=== PATIENT | male | born 1950 | race Caucasian/White ===

== ENCOUNTER 2018-09-10 11:17 | Emergency (ER) | payer MEDICARE ==
--- NOTE | 2018-09-10 12:15 | CT ---
EXAM: Brain CT scan Without contrast: HISTORY: Injury following a fall COMPARISON: None FINDINGS: Focal right posterior scalp injury. Partial opacification right mastoid. Atrophy and chronic white matter ischemic change. No focal mass or midline shift. No intra or extra-axial hemorrhage. The visualized sinuses and mastoids are clear of acute process. IMPRESSION: No mass or bleed or other significant acute intracranial process.
--- NOTE | 2018-09-10 12:22 | CT ---
EXAM: CT scan cervical spineWithout contrast: HISTORY: Injury from a fall COMPARISON: None FINDINGS: No evidence for acute fracture or facet dislocation. No significant malalignment. No prevertebral soft tissue swelling. Multilevel disc osteophytosis with variable severity multilevel canal, lateral recess, and foraminal stenosis. Minimal partial opacification of the inferior right mastoid. IMPRESSION: No evidence for acute fracture or facet dislocation or other significant acute process.
[2018-09-10 12:29] LABS: Hemoglobin 12.1 g/dL (14.0-18.0); Mean Corpuscular HGB CONC 34.2 g/dL (32.0-36.0); Mean Corpuscular Hemoglobin 36.1 pg (27.0-31.0); Mean Platelet Volume 8.2 fL (7.4-10.4); Platelet Count 160 thou/uL (130-400); Red Blood Cell (RBC) Count 3.37 mill/uL (4.70-6.10); White Blood Cell (WBC) Count 13.9 thou/uL (4.8-10.8)
[2018-09-10 12:30] LABS: Prothrombin Time 12.8 SEC (12.0-14.7)
[2018-09-10 12:46] LABS: ALT (SGPT) 14 U/L (8-55); AST (SGOT) 35 U/L (5-34); Albumin 4.1 g/dL (3.4-4.8); Alkaline Phosphatase 77 U/L (40-150); Anion Gap 21 mmol/L (10-20); BUN (Urea Nitrogen) 10 mg/dL (8.4-25.7); Bilirubin, Total 0.5 mg/dL (0.2-1.2); Calc. Creatinine Clearance 0 mL/min (70-130); Carbon Dioxide 22 mmol/L (23-31); Chloride 98 mmol/L (98-107); Estimated GFR-MDRD 44; Globulin 3.1 g/dL (2.4-3.5); Glucose 125 mg/dL (80-115); Potassium 3.6 mmol/L (3.5-5.1); Protein, Total 7.2 g/dL (5.8-8.1); Sodium 137 mmol/L (136-145)
[2018-09-10 12:47] LABS: PTT 20.2 SEC (22.9-36.1)
[2018-09-10 13:00] LABS: #Lymphocytes 1.2 thou/uL (1.20-3.40); #Monocytes 0.7 thou/uL (0.11-0.59); #Neutrophils 11.9 thou/uL (1.40-6.50); %Basophils 0.2 % (0.0-1.0); %Eosinophils 0.2 % (0.0-10.0); %Lymphocytes 8.7 % (21.0-51.0); Anisocytosis SLIGHT = 6-15 cells (100X) (0-5/hpf); MDiff Complete? YES; Macrocytosis SLIGHT = 6-15 cells (100X) (0-5/hpf); Platelet Morphology Comment Appears Adequate
[2018-09-10] MEDS ORDERED: Lidocaine 1% w/Epinephrine 1:100K 20 ML VIAL ONE (13:17)
[2018-09-10] MEDS ORDERED: Bacitracin Zinc 1 Packet ONE (13:44)
[2018-09-10] MEDS ORDERED: Adacel (T-DAP) 0.5 ML SYRINGE ONE (13:44)
== END 2018-09-10 13:48 | disposition home or self-care (01) ==
LOC: ERS 11:17
DX: S01.01XA Laceration without foreign body of scalp, initial encounter (principal); F10.10 Alcohol abuse, uncomplicated; F17.210 Nicotine dependence, cigarettes, uncomplicated; Z23 Encounter for immunization; W22.8XXA Striking against or struck by other objects, initial encounter
CPT/HCPCS: 12002; 36415; 70450; 72125; 80053; 85025; 85610; 85730; 90471; 90715; J2001

== ENCOUNTER 2018-09-28 12:20 | Emergency (ER) | payer MEDICARE | END 2018-09-28 12:49 | disposition home or self-care (01) | LOC: ERS 12:20 | DX: S01.01XD Laceration without foreign body of scalp, subsequent encounter (principal) ==

== ENCOUNTER 2018-10-26 14:34 | Emergency (ER) | payer MEDICARE | END 2018-10-26 15:23 | disposition home or self-care (01) | LOC: ERS 14:34 | DX: S01.01XD Laceration without foreign body of scalp, subsequent encounter (principal); F17.210 Nicotine dependence, cigarettes, uncomplicated; X58.XXXD Exposure to other specified factors, subsequent encounter ==

== ENCOUNTER 2018-11-14 11:38 | Inpatient (IN) | payer MEDICARE ==
[2018-11-14] MEDS ORDERED: ISOVUE-370 76%-LOCM 1 ML ONE (11:54)
--- NOTE | 2018-11-14 11:56 | CT ---
CT Brain WO Con: 11/14/2018 11:43 AM CLINICAL HISTORY: Level 2 stroke alert with right lower extremity weakness, last seen normal at 2100 hours last evening. IMAGING TECHNIQUE: Multiple CT images were obtained of the brain without IV contrast. COMPARISON: September 10, 2018 FINDINGS: Infarct: No acute infarct evident. There is moderate chronic small vessel white matter ischemic mace ge. Hemorrhage: None.. Hydrocephalus: None.. Basal cisterns: Normal.. Cerebral parenchyma: There is diffuse cerebral atrophy. Midline shift: None.. Cerebellum: There is diffuse cerebellar atrophy Brainstem: Normal. OTHER: Calvarium: Intact.. Visualized Paranasal sinuses: Clear.. Extracranial soft tissues:Normal. IMPRESSION: 1. No acute intracranial abnormality. 2. Findings called to Dr. Hernandez at 11:50 AM on November 14, 2018.
[2018-11-14 12:01] LABS: #Lymphocytes 0.9 thou/uL (1.20-3.40); #Monocytes 0.4 thou/uL (0.11-0.59); #Neutrophils 6.3 thou/uL (1.40-6.50); %Basophils 0.3 % (0.0-1.0); %Eosinophils 0.4 % (0.0-10.0); %Lymphocytes 11.4 % (21.0-51.0); %Monocytes 5.8 % (0.0-10.0); %Neutrophils 82.1 % (42.0-75.0); Hemoglobin 13.7 g/dL (14.0-18.0); Mean Corpuscular Hemoglobin 33.6 pg (27.0-31.0); Mean Corpuscular Volume 98.8 fL (78.0-98.0); Mean Platelet Volume 8.4 fL (7.4-10.4); Platelet Count 177 thou/uL (130-400); RBC Distribution Width 12.6 % (11.5-14.5); Red Blood Cell (RBC) Count 4.08 mill/uL (4.70-6.10); White Blood Cell (WBC) Count 7.6 thou/uL (4.8-10.8)
[2018-11-14 12:02] LABS: PTT 22.8 SEC (22.9-36.1)
--- NOTE | 2018-11-14 12:13 | CT ---
CTA of the head with and without IV contrast and 3-D reformatted imaging. CTA of the neck with IV contrast and 3-D reformatted imaging. INDICATION: Level 2 stroke workup with right lower extremity weakness COMPARISON: CT of the brain dated 11/14/2018 FINDINGS: CTA OF THE HEAD WITH CONTRAST: CTA OF THE BRAIN: Right ICA: Patent. Right MCA: Patent. Right DMITRY: Patent. ACOM: Patent. Left ICA: Patent. Left MCA: Patent. Left DMITRY: Patent. PCOMs: Patent. Vertebral arteries: There is mild atherosclerotic narrowing involving the mid left intracranial vert ebral artery. The right intracranial vertebral artery appears patent. Basilar Artery: Patent. agricultural scientist: Patent. Incidentals: No abnormal enhancement is demonstrated. CTA OF THE NECK WITH CONTRAST: Right CCA: Patent. Right ICA: Patent. Right Subclavian: Patent. Right Vertebral Artery: There is [id number] narrowing involving the origin of the right verteb ral artery due to partially calcified atherosclerotic plaque Left CCA: Patent. Left ICA: There is mild narrowing involving the proximal left internal carotid artery due to partial ly calcified atherosclerotic plaque Left Subclavian: Patent. Left Vertebral Artery: There is moderate narrowing involving the origin of the right vertebral arter y due to partially calcified atherosclerotic plaque Aerodigestive tract: Clear. Parotids/Submandibular/Thyroid glands: Normal. Lymph nodes: No pathologically enlarged lymph nodes. Lung Apices: Clear. Bones: There is scattered degenerative and osteoarthritic change present. Incidentals: None. IMPRESSION: 1. No large arterial vessel thrombus demonstrated. 2. Moderate narrowing involving the origins of the right and left vertebral arteries. Mild narrowing involving the mid left intracranial vertebral artery. 3. Mild proximal left ICA narrowing due to partially calcified atherosclerotic plaque. 4. Findings were called to Dr. Hernandez At 12:05 PM on November 14, 2018.
[2018-11-14 12:18] LABS: ALT (SGPT) 10 U/L (8-55); AST (SGOT) 21 U/L (5-34); Alkaline Phosphatase 87 U/L (40-150); Anion Gap 14 mmol/L (10-20); BUN (Urea Nitrogen) 9 mg/dL (8.4-25.7); Bilirubin, Total 1.1 mg/dL (0.2-1.2); Calc. Creatinine Clearance 0 mL/min (70-130); Calcium 9.4 mg/dL (7.8-10.44); Carbon Dioxide 28 mmol/L (23-31); Chloride 100 mmol/L (98-107); Estimated GFR-MDRD Greater than 90; Globulin 2.9 g/dL (2.4-3.5); Glucose 105 mg/dL (80-115); Potassium 3.8 mmol/L (3.5-5.1); Protein, Total 6.9 g/dL (5.8-8.1); Sodium 138 mmol/L (136-145)
--- NOTE | 2018-11-14 12:35 | RAD ---
PORTABLE CHEST 1 VIEW: Date: 11/14/18 Time: 1203 hours HISTORY: Dysphagia, expressive aphasia, right-sided weakness. FINDINGS/IMPRESSION: The heart size is enlarged. The aorta is tortuous. The lungs are expanded without lobar consolidation , pneumothoraces, aldo pulmonary edema, or pleural effusions. POS: ONURH
[2018-11-14] MEDS ORDERED: Aspirin 300 MG Suppository ONE (13:09)
[2018-11-14] MEDS ORDERED: Ondansetron PF 4 MG/2 ML Vial ONE (13:09)
[2018-11-14] MEDS ORDERED: Multivitamins, Adult 10 ML, Thiamine HCl 100 MG, Folic Acid 1 MG in Dextrose 5 %-0.45 %... IV SCH (14:30)
[2018-11-14] MEDS ORDERED: Labetalol HCl 100 MG/20 ML VIAL SLOW IVP PRN (16:18)
[2018-11-14] MEDS ORDERED: Bisacodyl 5 MG TAB PO PRN (16:18)
[2018-11-14] MEDS ORDERED: hydrALAZINE 20 MG/ML VIAL SLOW IVP PRN (16:18)
[2018-11-14] MEDS ORDERED: Ondansetron PF 4 MG/2 ML Vial IVP PRN (16:18)
[2018-11-14] MEDS ORDERED: Acetaminophen 325 MG TAB PO PRN (16:18)
[2018-11-14] MEDS ORDERED: Acetaminophen 650 MG Suppository PR PRN (16:18)
--- NOTE | 2018-11-14 17:16 | HP ---
PRIMARY CARE PROVIDER: None. CHIEF COMPLAINT: Weakness. HISTORY OF PRESENT ILLNESS: Mr. Mchugh is a pleasant 68-year-old gentleman, who was seen at [facility] on November 14, 2018. Mr. Mchugh is currently unable to provide any significant history secondary to aphasia. Collateral history was obtained from review of medical records and discussion with emergency room physician. I tried to call Mr. Mchugh's sister, but the phone line was not working. Mr. Mchugh has not seen a physician in several years. He was last seen to be at baseline last night. He does have a history of alcohol abuse. He lives in assisted living. Today morning, his neighbor heard him screaming. 911 was called. The patient was found to have aphasia and altered mental status. He was unable to follow commands. He also reportedly had right-sided paralysis, although at the time of my examination, he was able to move both right extremities. REVIEW OF SYSTEMS: Could not be completed secondary to the patient's aphasia. PAST MEDICAL HISTORY: None. PAST SURGICAL HISTORY: None. SOCIAL HISTORY: The patient smokes 3 to 4 cigarettes a day and drinks alcohol every day. FAMILY HISTORY: Could not be obtained. CODE STATUS: Could not be discussed because of the patient's aphasia and altered mental status. ALLERGIES: NO KNOWN DRUG ALLERGIES. CURRENT MEDICATIONS: None. PHYSICAL EXAMINATION: GENERAL: On examination, Mr. Mchugh is awake and alert, not in acute distress. VITAL SIGNS: Blood pressure is 153/103, pulse 79, respiratory rate 24, and oxygen saturation 98% on room air. He is afebrile. EYES: No scleral icterus. No conjunctival pallor. ENT: Moist mucosal membranes. No oropharyngeal erythema or exudates. NECK: Supple and nontender. Trachea is midline. RESPIRATORY: Accessory muscles of breathing are not active. Chest wall movements are symmetric bilaterally. LUNGS: Clear to auscultation without wheeze, rhonchi, or crepitations. CARDIOVASCULAR: S1 and S2 are heard, regular. Peripheral pulses palpable. No carotid bruit. No pericardial rub. ABDOMEN: Soft and nontender. Bowel sounds heard. NEUROLOGIC: Full neurologic examination was not possible secondary to the patient's noncooperation. There is no facial droop. He is moving his left extremities more than he is moving the right. He is able to rug cleaner hand my finger with his left hand, but is unable to do so with his right hand. Pupils are equal and reactive to light. Deep tendon reflexes are 2+, plantars downgoing bilaterally. The patient has receptive and expressive aphasia. MUSCULOSKELETAL: Four extremities as described above. SKIN: Multiple abrasions. LYMPHATIC: No cervical lymphadenopathy. PSYCHIATRIC: Normal mood, normal affect, unable to assess the patient's orientation to person, place, or time. LABORATORY DATA: Mr. Mchugh's labs and investigations were reviewed. I reviewed his electrocardiogram, which shows normal sinus rhythm, no ST changes to suggest an acute coronary syndrome. I reviewed his chest x-ray, which does not show any pulmonary infiltrates. Noncontrast CT scan of the brain did not show any acute intracranial abnormality. CT scan of [place] with contrast did not show any large arterial vessel thrombus. There was mild proximal left ICA narrowing due to partially calcified atherosclerotic block on CT angiogram of the neck with contrast. He had moderate narrowing involving the origins of the right and left vertebral arteries and mild narrowing involving the mid left intracranial vertebral artery. He has macrocytic anemia with hemoglobin 13.7, normal white count, normal platelet count, INR 1.0, normal comprehensive metabolic profile, normal troponin-I and plasma alcohol level less than 10. ASSESSMENT AND PLAN: Mr. Mchugh is a pleasant 68-year-old gentleman, who was seen at [facility] on November 14, 2018. His problem list includes: 1. Aphasia: Mr. Mchugh is presenting with aphasia, most likely secondary to ischemic cerebrovascular accident. He will be admitted to the hospital for further management. Neurology Service will be consulted. He will be started on aspirin. We will check MRI of brain and 2D echocardiogram. Rehab services will be consulted. 2. Alcohol abuse: We will start the patient on ASE protocol. 3. Tobacco abuse: We will consult the patient when he is doing better. We will start nicotine replacement therapy for now. 4. Altered mental status: Could be secondary to stroke. We will also check urine studies to rule out any urinary tract infection. 5. We will also start the patient on banana bag. LEVEL OF COMPLEXITY: High. LEVEL OF COMPLEXITY: High. Job ID: [id number]
[2018-11-14 17:39] VITALS: BMI 19.0
[2018-11-14] MEDS ORDERED: Diazepam 5 MG TAB PO PRN (21:17)
[2018-11-14] MEDS ORDERED: Diazepam 5 MG TAB PO SCH (21:30)
[2018-11-15] MEDS ORDERED: Diazepam 5 MG TAB PO PRN (04:00)
[2018-11-15 04:22] LABS: #Basophils 0.1 thou/uL (0.0-0.2); #Eosinphils 0.1 thou/uL (0.0-0.7); #Lymphocytes 1.3 thou/uL (1.20-3.40); #Monocytes 1.1 thou/uL (0.11-0.59); #Neutrophils 6.1 thou/uL (1.40-6.50); %Basophils 1.1 % (0.0-1.0); %Eosinophils 1.6 % (0.0-10.0); %Lymphocytes 14.8 % (21.0-51.0); %Monocytes 12.3 % (0.0-10.0); %Neutrophils 70.2 % (42.0-75.0); Hemoglobin 14.2 g/dL (14.0-18.0); Mean Corpuscular Hemoglobin 33.6 pg (27.0-31.0); Mean Platelet Volume 8.5 fL (7.4-10.4); Platelet Count 168 thou/uL (130-400); RBC Distribution Width 12.6 % (11.5-14.5); Red Blood Cell (RBC) Count 4.22 mill/uL (4.70-6.10); White Blood Cell (WBC) Count 8.7 thou/uL (4.8-10.8)
[2018-11-15 04:54] LABS: Anion Gap 16 mmol/L (10-20); BUN (Urea Nitrogen) 5 mg/dL (8.4-25.7); Calc. Creatinine Clearance 84 mL/min (70-130); Calcium 9.6 mg/dL (7.8-10.44); Carbon Dioxide 25 mmol/L (23-31); Cardiac Risk 2.4 (Less than 4.5); Chloride 102 mmol/L (98-107); Cholesterol 158 mg/dl (< 200 Desired); Estimated GFR-MDRD Greater than 90; Glucose 99 mg/dL (80-115); HDL Cholesterol 65 mg/dL (>60 Neg Risk); LDL Cholesterol, Calculated 76 mg/dL; Potassium 3.8 mmol/L (3.5-5.1); Sodium 139 mmol/L (136-145); Triglycerides 83 mg/dL (Less than 150)
[2018-11-15 06:20] LABS: Bacteria/HPF None Seen HPF (None Seen); Bilirubin Negative (Negative); Blood, Urine Negative (Negative); Clarity Clear (Clear); Glucose, Urine (Dipstick) Normal (Negative); Leukocyte Negative Leu/uL (Negative); Nitrite Negative (Negative); Protein, Urine (Dipstick) 20 mg/dL (Neg-Trace); Squamous Epithelial 0-3 HPF (0-3); Urobilinogen 6 mg/dL (Less than 2); WBC/HPF 0-3 HPF (0-3)
[2018-11-15 06:25] LABS: Urine Culture Reflex No No
[2018-11-15] MEDS ORDERED: Lorazepam 2 MG/ML VIAL SLOW IVP SCH (08:45)
[2018-11-15] MEDS ORDERED: Prevnar 13-Val Conj/PF 0.5 ML SYRINGE IM ONE (09:00)
[2018-11-15] MEDS: Enoxaparin Sodium 40 MG/0.4 ML SYRINGE SC SCH (10:31)
--- NOTE | 2018-11-15 11:37 | PDOC.HOSPP ---
- Subjective Subjective: Ms. Mchugh was seen today in follow-up of aphasia. He is still aphasic, and his words are clear, but he does not answer questions appropriately. - Objective Vital Signs & Weight: Vital Signs (12 hours) Temp Pulse Pulse Pulse Resp BP BP 11/15/18 08:48 65 64 132/68 137/67 11/15/18 08:00 97.6 F 68 20 11/15/18 03:18 98.3 F 71 20 BP Pulse Ox 11/15/18 08:48 11/15/18 08:00 136/67 94 L 11/15/18 03:18 115/57 L 92 L Weight Weight 144 lb 6 oz I&O: 11/14/18 11/15/18 11/16/18 06:59 06:59 06:59 Intake Total 497 Output Total 200 200 Balance 297 -200 Result Diagrams: 11/15/18 04:14 11/15/18 04:14 Additional Labs: Accuchecks 11/14/18 11:44 POC Glucose 98 ROS - Review of Systems All systems: All other ROS were reviewed and found negative. - Medication Medications: Active Medications Generic Name Dose Route Start Last Admin Trade Name Freq PRN Reason Stop Dose Admin Enoxaparin Sodium 40 mg 11/15/18 09:00 11/15/18 10:31 Lovenox SC 40 mg 0900 MIKAYLA Administration - Exam Eye: PERRL, anicteric sclera ENT: normocephalic atraumatic, no oropharyngeal lesions, moist mucosa Heart: RRR, no murmur, no gallops, no rubs, normal peripheral pulses Respiratory: CTAB, no wheezes, no rales, no ronchi, normal chest expansion Gastrointestinal: soft, non-tender, non-distended, normal bowel sounds, no palpable masses, no hepatomegaly Extremities: no cyanosis, no clubbing, no edema Neurological: speech deficit (Aphasic- expressive) Hosp A/P (1) Expressive aphasia Code(s): R47.01 - APHASIA Status: Acute (2) Dysphagia Code(s): R13.10 - DYSPHAGIA, UNSPECIFIED Status: Acute - Plan * Expressive Aphasia- likely due to an acute CVA- Speech therapy to evaluate * MRI and Echo are pending * Dysphagia- will remain NPO, and continue to assess. Will also need to locate family
[2018-11-15] MEDS: Multivitamin W/ Minerals 1 TAB PO SCH (11:52)
[2018-11-15] MEDS: Magnesium Oxide 400 MG TAB PO SCH (11:52)
[2018-11-15] MEDS: Folic Acid 1 MG TAB PO SCH (11:52)
[2018-11-15] MEDS: Thiamine 100 MG TAB PO SCH (11:53)
--- NOTE | 2018-11-15 16:12 | CON ---
DATE OF CONSULTATION: 11/15/2018 CONSULTING PHYSICIAN: Hospitalist Service. IMPRESSION: Questionable stroke versus dementia. PLAN: MRI of the brain. HISTORY OF PRESENT ILLNESS: Mr. Mchugh is a 68-year-old man, who came in from [facility] reportedly. There was some change in mental status. On review of the ER record, there is very little information. He had CT and CT angiogram done in the emergency room, which were both negative. He has been admitted to the floor. He is unable to give any type of history. PAST MEDICAL HISTORY: Unknown. ALLERGIES: NONE REPORTED. SOCIAL HISTORY: halfway resident. FAMILY HISTORY: Not obtainable. REVIEW OF SYSTEMS: Not obtainable. PHYSICAL EXAMINATION: GENERAL: He is a thin elderly man, lying in bed in a diaper. VITAL SIGNS: Blood pressure 136/67, pulse 68, respirations 20, and temperature 97.6. HEENT: Pupils equal. Conjunctivae clear. Oropharynx, poor dentition. NECK: Supple. No lymphadenopathy. EXTREMITIES: No cyanosis, clubbing, or edema. NEUROLOGIC: He was awake, but he had very poor verbal output. He would follow some simple commands. There was no facial asymmetry. He had good antigravity strength in both upper extremities, but I could not get him to do a hand healthcare interpreter on the right as compared to the left. Plantar responses were downgoing bilaterally. Gait was not testable. No abnormal movements were seen. DIAGNOSTIC STUDIES: EKG shows sinus rhythm. LABORATORY STUDIES: Unremarkable. CBC, coags, and chemistry panel with a risk ratio of 2.4. His toxicology screen was negative for alcohol. His urine was clear. SUMMARY: Elderly gentleman, who is unable to give a history. It is difficult to say whether it might be a component of expressive aphasia versus purely dementia. MRI should sort this out. Job ID: [id number]
--- NOTE | 2018-11-15 16:26 | MRI ---
MRI brain noncontrast HISTORY: Altered mental status. Right leg weakness. FINDINGS: There is no evidence of acute intracranial hemorrhage or infarct. Diffuse cortical atrophy. Chronic ischemic small vessel disease within the periventricular white matter of each cerebral hemisphere. There is no mass effect or shift of midline structures. Motion artifact obscures detail. IMPRESSION: No acute intracranial abnormalities are demonstrated. Prominent cortical atrophy.
[2018-11-15] MEDS: Multivitamins, Adult 10 ML, Folic Acid 1 MG, Thiamine HCl 100 MG in Dextrose 5 %-0.45 %... IV SCH (16:34)
[2018-11-16] MEDS ORDERED: Thiamine HCl 200 MG/2 ML VIAL SLOW IVP SCH (07:15)
[2018-11-16] MEDS: Magnesium Oxide 400 MG TAB PO SCH (08:58)
[2018-11-16] MEDS: Folic Acid 1 MG TAB PO SCH (08:58)
[2018-11-16] MEDS: Multivitamin W/ Minerals 1 TAB PO SCH (08:58)
[2018-11-16] MEDS: Thiamine 100 MG TAB PO SCH (08:58)
[2018-11-16] MEDS: Enoxaparin Sodium 40 MG/0.4 ML SYRINGE SC SCH (08:58)
[2018-11-16] MEDS: Multivitamins, Adult 10 ML, Folic Acid 1 MG, Thiamine HCl 100 MG in Dextrose 5 %-0.45 %... IV SCH (15:47)
--- NOTE | 2018-11-16 15:58 | PDOC.HOSPP ---
- Subjective Subjective: Mr. Mchugh was seen today in follow-up of altered mental status at approximately 13:15. His sister is at the bedside. He is able to form more complete sentences, but he is still confused. His sister confirms he has not sought medical care in a long time, probably years. She also says that he drinks excessively daily. - Objective Vital Signs & Weight: Vital Signs (12 hours) Temp Pulse Pulse Pulse Resp BP BP 11/16/18 12:15 149/74 H 11/16/18 11:39 97.6 F 63 17 11/16/18 10:22 68 65 136/73 11/16/18 09:17 84 69 134/60 11/16/18 08:40 11/16/18 08:20 131/78 11/16/18 07:54 98.4 F 76 18 11/16/18 04:00 99.6 F 70 16 BP BP Pulse Ox 11/16/18 12:15 11/16/18 11:39 149/74 H 100 11/16/18 10:22 134/72 11/16/18 09:17 141/74 H 11/16/18 08:40 96 11/16/18 08:20 11/16/18 07:54 131/78 96 11/16/18 04:00 136/71 96 Weight Admit Weight 144 lb 6 oz Weight 144 lb 6 oz I&O: 11/15/18 11/16/18 11/17/18 06:59 06:59 06:59 Intake Total 497 200 300 Output Total 200 200 Balance 297 0 300 Result Diagrams: 11/15/18 04:14 11/15/18 04:14 ROS - Review of Systems All systems: All other ROS were reviewed and found negative. - Medication Medications: Active Medications Generic Name Dose Route Start Last Admin Trade Name Freq PRN Reason Stop Dose Admin Enoxaparin Sodium 40 mg 11/15/18 09:00 11/16/18 08:58 Lovenox SC 40 mg 0900 MIKAYLA Administration Folic Acid 1 mg 11/15/18 09:00 11/16/18 08:58 Folvite PO 1 mg DAILY MIKAYLA Administration Multivitamins 10 ml/ Folic 1,011.2 mls @ 100 mls/hr 11/15/18 14:00 11/16/18 15:47 Acid 1 mg/ Thiamine HCl 100 mg IV 1,011.2 mls / Dextrose/Sodium Chloride Q24HR MIKAYLA Administration Iron/Minerals/Multivitamins 1 tab 11/15/18 09:00 11/16/18 08:58 Theragran M PO 1 tab DAILY MIKAYLA Administration Magnesium Oxide 400 mg 11/15/18 09:00 11/16/18 08:58 Magnesium Oxide PO 400 mg DAILY MIKAYLA Administration Thiamine HCl 100 mg 11/15/18 09:00 11/16/18 08:58 Thiamine PO 100 mg DAILY MIKAYLA Administration - Exam Eye: PERRL Heart: RRR, no murmur, no gallops, no rubs, normal peripheral pulses Respiratory: CTAB, no wheezes, no rales, no ronchi Gastrointestinal: soft, non-tender, non-distended, normal bowel sounds, no palpable masses, no hepatomegaly, no splenomegaly Extremities: no cyanosis Skin: normal turgor, no lesions Neurological: CN's grossly intact, no weakness Hosp A/P (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
[2018-11-16] MEDS ORDERED: Lorazepam 2 MG/ML VIAL SLOW IVP PRN (16:03)
[2018-11-17] MEDS: Lorazepam 1 MG TAB PO PRN ×2 (01:57→22:59)
[2018-11-17] MEDS: Multivitamin W/ Minerals 1 TAB PO SCH (09:12)
[2018-11-17] MEDS: Enoxaparin Sodium 40 MG/0.4 ML SYRINGE SC SCH (09:12)
[2018-11-17] MEDS: Folic Acid 1 MG TAB PO SCH (09:12)
[2018-11-17] MEDS: Thiamine 100 MG TAB PO SCH (09:12)
[2018-11-17] MEDS: Magnesium Oxide 400 MG TAB PO SCH (09:12)
[2018-11-17] MEDS: Multivitamins, Adult 10 ML, Folic Acid 1 MG, Thiamine HCl 100 MG in Dextrose 5 %-0.45 %... IV SCH (15:01)
--- NOTE | 2018-11-17 15:17 | PDOC.HOSPP ---
- Subjective Subjective: Mr. Mchugh was seen today at approximately 11:00AM. He has not changed much overnight. He is confused and his continues with difficulty answering questions appropriately. - Objective Vital Signs & Weight: Vital Signs (12 hours) Temp Pulse Pulse Pulse Resp BP BP 11/17/18 12:10 145/70 H 11/17/18 12:00 97.9 F 81 20 11/17/18 09:54 104 H 89 133/72 11/17/18 08:15 140/78 11/17/18 07:25 98.1 F 70 16 11/17/18 04:00 98.1 F 64 16 BP BP Pulse Ox 11/17/18 12:10 11/17/18 12:00 145/70 H 96 11/17/18 09:54 115/66 11/17/18 08:15 11/17/18 07:25 140/78 95 11/17/18 04:00 145/68 H 97 Weight Admit Weight 144 lb 6 oz Weight 144 lb 6 oz I&O: 11/16/18 11/17/18 11/18/18 06:59 06:59 06:59 Intake Total 200 300 600 Output Total 200 200 Balance 0 100 600 Result Diagrams: 11/15/18 04:14 11/15/18 04:14 ROS - Review of Systems All systems: All other ROS were reviewed and found negative. - Medication Medications: Active Medications Generic Name Dose Route Start Last Admin Trade Name Freq PRN Reason Stop Dose Admin Diazepam 5 mg 11/15/18 04:00 11/17/18 09:12 Valium PO 5 mg Q4H PRN Administration FOR ASE 10 OR GREATER Enoxaparin Sodium 40 mg 11/15/18 09:00 11/17/18 09:12 Lovenox SC 40 mg 0900 MIKAYLA Administration Folic Acid 1 mg 11/15/18 09:00 11/17/18 09:12 Folvite PO 1 mg DAILY MIKAYLA Administration Multivitamins 10 ml/ Folic 1,011.2 mls @ 100 mls/hr 11/15/18 14:00 11/17/18 15:01 Acid 1 mg/ Thiamine HCl 100 mg IV Not Given / Dextrose/Sodium Chloride Q24HR [facility] Iron/Minerals/Multivitamins 1 tab 11/15/18 09:00 11/17/18 09:12 Theragran M PO 1 tab DAILY MIKAYLA Administration Lorazepam 1 mg 11/16/18 16:03 11/17/18 01:57 Ativan PO 1 mg Q4H PRN Administration Anxiety/Agitation Magnesium Oxide 400 mg 11/15/18 09:00 11/17/18 09:12 Magnesium Oxide PO 400 mg DAILY MIKAYLA Administration Thiamine HCl 100 mg 11/15/18 09:00 11/17/18 09:12 Thiamine PO 100 mg DAILY MIKAYLA Administration - Exam Eye: PERRL, anicteric sclera Heart: RRR, no murmur, no gallops, no rubs, normal peripheral pulses Respiratory: CTAB, no wheezes, no rales, no ronchi, normal chest expansion Gastrointestinal: soft, non-tender, non-distended, normal bowel sounds, no palpable masses, no splenomegaly Extremities: 1+ LE edema Hosp A/P (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
[2018-11-18 08:02] VITALS: BP 165/87; TEMP 98.2
--- NOTE | 2018-11-18 08:45 | PDOC.HOSPP ---
- Subjective Subjective: Mr. Mchugh was seen today in follow-up of altered mental status. He is sitting up in bed eating. He does not appear to be in any distress. - Objective Vital Signs & Weight: Vital Signs (12 hours) Temp Pulse Resp BP Pulse Ox 11/18/18 07:35 98.2 F 73 20 165/87 H 99 11/18/18 05:32 99 11/18/18 04:00 97.7 F 66 16 138/67 99 11/18/18 00:00 97.4 F L 74 16 125/69 100 Weight Admit Weight 144 lb 6 oz Weight 144 lb 6 oz I&O: 11/17/18 11/18/18 11/19/18 06:59 06:59 06:59 Intake Total 300 900 Output Total 200 Balance 100 900 Result Diagrams: 11/15/18 04:14 11/15/18 04:14 ROS - Review of Systems All systems: All other ROS were reviewed and found negative. - Medication Medications: Active Medications Generic Name Dose Route Start Last Admin Trade Name Freq PRN Reason Stop Dose Admin Diazepam 5 mg 11/15/18 04:00 11/17/18 09:12 Valium PO 5 mg Q4H PRN Administration FOR ASE 10 OR GREATER Enoxaparin Sodium 40 mg 11/15/18 09:00 11/17/18 09:12 Lovenox SC 40 mg 0900 MIKAYLA Administration Folic Acid 1 mg 11/15/18 09:00 11/17/18 09:12 Folvite PO 1 mg DAILY MIKAYLA Administration Iron/Minerals/Multivitamins 1 tab 11/15/18 09:00 11/17/18 09:12 Theragran M PO 1 tab DAILY MIKAYLA Administration Lorazepam 1 mg 11/16/18 16:03 11/17/18 22:59 Ativan PO 1 mg Q4H PRN Administration Anxiety/Agitation Magnesium Oxide 400 mg 11/15/18 09:00 11/17/18 09:12 Magnesium Oxide PO 400 mg DAILY MIKAYLA Administration Thiamine HCl 100 mg 11/15/18 09:00 11/17/18 09:12 Thiamine PO 100 mg DAILY MIKAYLA Administration - Exam Eye: PERRL, anicteric sclera Heart: RRR, no murmur, no gallops, no rubs, normal peripheral pulses Respiratory: CTAB, no wheezes, no rales, no ronchi, normal chest expansion, no tachypnea Gastrointestinal: soft, non-tender, non-distended, normal bowel sounds, no palpable masses Extremities: no edema Hosp A/P (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
[2018-11-18] MEDS: Multivitamin W/ Minerals 1 TAB PO SCH (10:44)
[2018-11-18] MEDS: Thiamine 100 MG TAB PO SCH (10:45)
[2018-11-18] MEDS: Magnesium Oxide 400 MG TAB PO SCH (10:45)
[2018-11-18] MEDS: Folic Acid 1 MG TAB PO SCH (10:45)
[2018-11-18] MEDS: Enoxaparin Sodium 40 MG/0.4 ML SYRINGE SC SCH (10:45)
--- NOTE | 2018-11-19 14:34 | DIS ---
DATE OF ADMISSION: 11/14/2018 DATE OF DISCHARGE: 11/18/2018 PRIMARY CARE PHYSICIAN: The patient does not have a primary care physician. DISCHARGE DISPOSITION: [facility]. DISCHARGE DIAGNOSES: 1. Alcoholic encephalopathy. 2. Alcoholism. 3. Aphasia. DISCHARGE MEDICATIONS: Include, 1. Thiamine 100 mg daily. 2. Magnesium oxide 400 mg once a day. 3. Folic acid 1 mg daily. 4. Valium 5 mg q.4 as needed. PROCEDURES DONE DURING ADMISSION: The patient had a CT angiogram of the neck and [place] of [place], which was negative for any significant flow-limiting disease. The patient had a CT scan of the brain, which was negative for any acute intracranial abnormalities. Also, had an MRI of the brain showing no acute intracranial abnormalities and also had an echocardiogram in which the ejection fraction was estimated at 50% to 55%. There was grade 1/3 diastolic dysfunction, moderate mitral regurgitation. CODE STATUS: Full code. ALLERGIES: NO KNOWN DRUG ALLERGIES. HOSPITAL COURSE: Mr. Mchugh is a pleasant 68-year-old gentleman, who was admitted to the hospital after he was found to be altered by a neighbor and friend. He was noted to have difficulty with his speech, finding words. There was initial concern for possible stroke. He was admitted, and an MRI was obtained as well as a CT scan, both of which were negative. He was evaluated by Neurology, and it was felt that if the MRI was negative, that his symptoms could be related to possible dementia. He does have a history of chronic and fairly persistent alcohol abuse. This likely could represent an alcoholic encephalopathy. He was treated with thiamine, folic acid, and multivitamins. Since he is not safe to be discharged back to the assisted living, Case Management was consulted and a safe discharge plan was obtained, and he was discharged to the [facility]. This was done with consultation with the patient's sister, who is his only family member willing to make decisions for him. Job ID: [id number]
== END 2018-11-18 11:20 | DRG 57 ==
LOC: ERS 11:38 → 2SE 17:04
PROVIDERS: ADMIT Internal Medicine; ATTEND Internal Medicine
DX: G31.2 Degeneration of nervous system due to alcohol (principal); R47.01 Aphasia; F10.20 Alcohol dependence, uncomplicated; R13.10 Dysphagia, unspecified; Y90.0 Blood alcohol level of less than 20 mg/100 ml
CPT/HCPCS: 36415; 36416; 70450; 70496; 70498; 70551; 71045; 80048; 80053; 80061; 80307; 81001; 84484; 85025; 85610; 85730; 93005; 93306; J1650; J2060; J2405; J3411; J3475; J3490; J7042; Q9966

== ENCOUNTER 2019-06-13 23:14 | Observation (INO) | payer MEDICARE ==
--- NOTE | 2019-06-13 23:58 | CT ---
CT head noncontrast HISTORY: Head injury. COMPARISON: 11/14/2018. FINDINGS: There is no evidence of acute intracranial hemorrhage or infarct. Diffuse cortical atrophy and chronic ischemic small vessel disease are again demonstrated. There is no mass effect or shift of midline structures. Dystrophic calcification of the basal ganglia. Old left parietal infarct. Visu alized paranasal sinuses remain well-aerated. IMPRESSION: Chronic-type findings are stable. No acute intracranial abnormalities are demonstrated.
[2019-06-14 00:02] LABS: Bilirubin Negative (Negative); Blood, Urine Negative (Negative); Clarity Clear (Clear); Glucose, Urine (Dipstick) Normal (Negative); Leukocyte Negative Leu/uL (Negative); Nitrite Negative (Negative); Protein, Urine (Dipstick) Negative (Neg-Trace); Urobilinogen Normal mg/dL (Less than 2)
--- NOTE | 2019-06-14 00:04 | CT ---
CT cervical spine noncontrast HISTORY: Fall. Neck injury. FINDINGS: Vertebral body heights are maintained. Disc space narrowing and osteophytosis at each level . Cervicothoracic junction is intact. No acute fracture or dislocation. Multilevel central canal and foraminal stenoses. Prominent calcification within the arterial structures. Mild mucosal thickening right mastoid air gregoria ls. IMPRESSION: Prominent osseous degenerative changes of the cervical spine. No acute osseous abnormalit ies are demonstrated. Atherosclerosis.
[2019-06-14 00:14] LABS: #Basophils 0.1 thou/uL (0.0-0.2); #Eosinphils 0.2 thou/uL (0.0-0.7); #Lymphocytes 1.9 thou/uL (1.20-3.40); #Monocytes 0.4 thou/uL (0.11-0.59); #Neutrophils 4.2 thou/uL (1.40-6.50); %Basophils 1.4 % (0.0-1.0); %Lymphocytes 27.4 % (21.0-51.0); %Monocytes 6.1 % (0.0-10.0); %Neutrophils 62.1 % (42.0-75.0); Hemoglobin 14.3 g/dL (14.0-18.0); Mean Corpuscular HGB CONC 35.3 g/dL (32.0-36.0); Mean Corpuscular Hemoglobin 34.9 pg (27.0-31.0); Mean Corpuscular Volume 98.9 fL (78.0-98.0); Mean Platelet Volume 8.2 fL (7.4-10.4); Platelet Count 168 thou/uL (130-400); RBC Distribution Width 13.1 % (11.5-14.5); Red Blood Cell (RBC) Count 4.09 mill/uL (4.70-6.10); White Blood Cell (WBC) Count 6.8 thou/uL (4.8-10.8)
[2019-06-14] MEDS ORDERED: Multivitamins, Adult 10 ML, Thiamine HCl 100 MG, Folic Acid 1 MG in Dextrose 5 %-0.45 %... IV SCH (00:15)
[2019-06-14 00:37] LABS: ALT (SGPT) 21 U/L (8-55); AST (SGOT) 56 U/L (5-34); Albumin 4.3 g/dL (3.4-4.8); Alcohol 338 mg/dL (Less than 10); Alkaline Phosphatase 98 U/L (40-110); Anion Gap 14 mmol/L (10-20); BUN (Urea Nitrogen) 5 mg/dL (8.4-25.7); Bilirubin, Total 0.5 mg/dL (0.2-1.2); Calc. Creatinine Clearance 0 mL/min (70-130); Calcium 9.1 mg/dL (7.8-10.44); Carbon Dioxide 27 mmol/L (23-31); Chloride 98 mmol/L (98-107); Estimated GFR-MDRD Greater than 90; Globulin 3.1 g/dL (2.4-3.5); Glucose 94 mg/dL (80-115); Potassium 4.3 mmol/L (3.5-5.1); Protein, Total 7.4 g/dL (5.8-8.1); Sodium 135 mmol/L (136-145)
[2019-06-14 01:02] LABS: CKMB 12.3 ng/mL (0-6.6)
[2019-06-14 03:02] LABS: Troponin I Less than 0.010 ng/mL (< 0.028)
[2019-06-14 06:26] LABS: Troponin I Less than 0.010 ng/mL (< 0.028)
[2019-06-14] MEDS ORDERED: Lorazepam 2 MG/ML VIAL SLOW IVP PRN (09:22)
[2019-06-14] MEDS ORDERED: hydrALAZINE 20 MG/ML VIAL SLOW IVP PRN (09:22)
[2019-06-14] MEDS: Multivitamins, Adult 10 ML, Folic Acid 1 MG, Thiamine HCl 100 MG in Dextrose 5 %-0.45 %... IV SCH (10:49)
--- NOTE | 2019-06-14 15:47 | HP ---
PRIMARY CARE PHYSICIAN: The patient currently does not have a primary care physician. CHIEF COMPLAINT: "I don't know." HISTORY OF PRESENT ILLNESS: Mr. Mchugh is a pleasant 68-year-old gentleman who was brought to the hospital after he suffered a fall at home. It appears he was also intoxicated with alcohol. He has a history of longstanding alcohol abuse, which he readily admits to. He tells me that he has a girlfriend who went to go visit a friend, and he says that he was very sad about this, so he started drinking again. He says that he drinks at least 3 to 4 beers a day and then sometimes a liter of Smirnoff Vodka. He says that he is not really sure what happened, but was told that a friend from across the street noticed that he had fallen. He says he fell in the middle of the street somehow. He also admits that he has not been eating regularly and has been feeling faint and wobbly. Currently, he notes a slight headache, but otherwise no complaints. It was noted that when he arrived in, EMS noticed a 1-inch laceration in the back of his head. He does not remember falling and again no associated symptoms. The patient had a CT scan of the brain as well as a C-spine, which were negative, and he is being placed in observation. It is also noted that his serum alcohol level was 338. REVIEW OF SYSTEMS: All systems were reviewed and were negative except for that mentioned in the history of present illness. The patient also does admit to some erythema at the lace over the right eye, which he says he is seeing an delivery engineer for. PAST MEDICAL HISTORY: This is taken from previous history and physical from 11/14/2018, and includes history of alcoholism. PAST SURGICAL HISTORY: Negative. SOCIAL HISTORY: He says he smokes 3 to 4 cigarettes a day. He drinks alcohol daily at least 3 to 4 beers a day and he says he drinks the fruit-flavored Smirnoff Vodka. He says it comes in about a liter, and he says he can drink that in one day. He lives alone. He says he has been several times. He would like to be a full code. FAMILY HISTORY: Unknown. CURRENT MEDICATIONS: None. PHYSICAL EXAMINATION: GENERAL: He is currently alert and oriented. He is very disheveled in appearance. He appears cachectic and malnourished. VITAL SIGNS: Blood pressure was 124/93, heart rate 90, respiratory rate of 20, and temperature was 98.6. HEENT: Pupils are equal, round, and reactive. He does have some conjunctival injection as well as some matting of the right eye. The upper lid is a bit swollen and there is a little bit of purulent discharge. Throat, there is no erythema, although he does have very poor dentition. No exudates. NECK: There is no adenopathy. No bruits. LUNGS: Clear to auscultation. No wheezing. No rales. No rhonchi. CARDIOVASCULAR: He has a normal S1 and S2. There was no S3 or S4. No murmurs or clicks. No rubs. ABDOMEN: Soft. It is nontender and nondistended. Positive for bowel sounds. No rebound. No guarding. No organomegaly. EXTREMITIES: There is some muscle wasting diffusely. No calf tenderness. No joint effusions. NEUROLOGIC: He is moving all of his extremities. His muscle strength is 5/5 in both the upper and lower extremities. It is intact. There was no asterixis. He did have some difficulty with [id number] testing. SKIN: He has some scaly and plaque-like lesions all over. They are very small and some erythematous in appearance. LABORATORY RESULTS: White blood cell count 6.8, hemoglobin 14.3, hematocrit is 40.5, and platelet count is 168. Sodium 135, potassium 4.5, chloride is 98, CO2 is 27, BUN of 5, creatinine 0.79, and glucose is 94. The troponin is 0.038. Urinalysis was negative. Plasma alcohol level was 338. IMAGING STUDIES: CT scan of the brain was negative for any bleed. CT of the cervical spine, there was no fracture. ASSESSMENT: 1. This is a pleasant 68-year-old gentleman who presents to the emergency room after having a fall and laceration of the head. Luckily, he has not suffered serious head injury or bleed. This is likely due to alcohol intoxication. His blood alcohol level was 338, it is in the toxic range. He will be monitored in observation. We will place him on IV fluids including a "banana bag", get a PT/OT consult, place him on ASE protocol. I have already discussed the need for alcohol cessation and the fact that if he continues drinking at this rate he will . He states that he understands this and is well aware. He says he has been to numerous alcohol programs. It is unclear whether he is motivated to go again. Nevertheless, once his alcohol level has improved, this conversation can be revisited. 2. Conjunctivitis. We will need to reconcile and restart his medications. In the meantime, we can place him on erythromycin ointment to that right eye. We will hold off on any deep vein thrombosis prophylaxis due to the risk of fall. Job ID: [id number]
[2019-06-14] MEDS ORDERED: Lorazepam 1 MG TAB ONE (16:16)
[2019-06-14] MEDS: Lorazepam 1 MG TAB PO SCH ×2 (16:18→20:55)
[2019-06-14] MEDS ORDERED: Erythromycin Base 0.5% Oint 1 GM TUBE EA EYE SCH (21:00)
[2019-06-15 04:31] LABS: #Eosinphils 0.1 thou/uL (0.0-0.7); #Lymphocytes 1.3 thou/uL (1.20-3.40); #Monocytes 0.4 thou/uL (0.11-0.59); #Neutrophils 2.5 thou/uL (1.40-6.50); %Lymphocytes 29.9 % (21.0-51.0); %Monocytes 9.7 % (0.0-10.0); %Neutrophils 56.5 % (42.0-75.0); Hemoglobin 12.9 g/dL (14.0-18.0); Mean Corpuscular HGB CONC 33.5 g/dL (32.0-36.0); Mean Corpuscular Hemoglobin 33.5 pg (27.0-31.0); Mean Platelet Volume 8.3 fL (7.4-10.4); Platelet Count 131 thou/uL (130-400); RBC Distribution Width 13.2 % (11.5-14.5); Red Blood Cell (RBC) Count 3.83 mill/uL (4.70-6.10); White Blood Cell (WBC) Count 4.4 thou/uL (4.8-10.8)
[2019-06-15 04:51] LABS: Anion Gap 11 mmol/L (10-20); BUN (Urea Nitrogen) 9 mg/dL (8.4-25.7); Calc. Creatinine Clearance 89 mL/min (70-130); Calcium 8.4 mg/dL (7.8-10.44); Carbon Dioxide 27 mmol/L (23-31); Chloride 102 mmol/L (98-107); Estimated GFR-MDRD Greater than 90; Glucose 89 mg/dL (80-115); Potassium 3.4 mmol/L (3.5-5.1); Sodium 137 mmol/L (136-145)
[2019-06-15] MEDS: D5 1/2 NS w/20 mEq KCL 1,000 ML IV SCH ×2 (05:52→16:31)
[2019-06-15 06:31] LABS: Magnesium 1.8 mg/dL (1.6-2.6); Phosphorus 3.8 mg/dL (2.3-4.7)
[2019-06-15] MEDS ORDERED: Potassium Chloride 20 MEQ TAB PO SCH (07:45)
[2019-06-15] MEDS ORDERED: FLU VACC TS2019-20(65YR UP)/PF 180 MCG/0.5 ML SYRINGE IM ONE (09:00)
[2019-06-15] MEDS: Folic Acid 1 MG TAB PO SCH (09:20)
[2019-06-15] MEDS: Thiamine 100 MG TAB PO SCH (09:20)
[2019-06-15] MEDS: Lorazepam 1 MG TAB PO SCH ×3 (09:21→21:12)
[2019-06-15] MEDS: Multivit, Therapeutic 1 TAB PO SCH (09:21)
--- NOTE | 2019-06-15 10:00 | PDOC.HOSPP ---
- Subjective Encounter Date: 06/15/19 Encounter Time: 09:55 Subjective: Mr. Mchugh was seen today in follow-up. He does not have any new complaints. - Objective Vital Signs & Weight: Vital Signs (12 hours) Temp Pulse Resp BP BP Pulse Ox 06/15/19 09:18 96.5 F L 83 18 160/82 H 96 06/15/19 04:00 98.7 F 89 18 170/91 H 170/91 H 93 L 06/15/19 00:00 98.9 F 101 H 17 138/71 95 06/14/19 23:44 98.9 F 101 H 17 138/71 95 Weight Admit Weight 155 lb 6.4 oz Weight 155 lb 9.6 oz I&O: 06/14/19 06/15/19 06/16/19 06:59 06:59 06:59 Output Total 400 Balance -400 Result Diagrams: 06/15/19 04:17 06/15/19 04:17 Hospitalist ROS - Medication Medications: Active Medications Generic Name Dose Route Start Last Admin Trade Name Shameka PRN Reason Stop Dose Admin Folic Acid 1 mg 06/15/19 09:00 06/15/19 09:20 Folvite PO 1 mg DAILY MIKAYLA Administration Multivitamins 10 ml/ Folic 1,011.2 mls @ 75 mls/hr 06/14/19 09:30 06/14/19 10 :49 Acid 1 mg/ Thiamine HCl 100 mg IV 1,011.2 mls / Dextrose/Sodium Chloride Q24HR MIKAYLA Administration Potassium Chloride/Dextrose/Sod Cl 1,000 mls @ 125 mls/hr 06/15/19 05:30 05:52 D5 1/2 Ns W/20 Meq Kcl IV 1,000 mls .Q8H MIKAYLA Administration Lorazepam 1 mg 06/14/19 15:00 06/15/19 09:21 Ativan PO 06/16/19 09:01 1 mg TID MIKAYLA Administration Multivitamins 1 tab 06/15/19 09:00 06/15/19 09:21 Theragran PO 1 tab DAILY MIKAYLA Administration Potassium Chloride 40 meq 06/15/19 07:45 06/15/19 09:20 K-Dur PO 06/15/19 10:00 40 meq NOW MIKAYLA Administration Sodium Chloride 10 ml 06/14/19 21:00 06/14/19 21:05 Flush - Normal Saline IVF 10 ml Q12HR MIKAYLA Administration Thiamine HCl 100 mg 06/15/19 09:00 06/15/19 09:20 Thiamine PO 100 mg DAILY MIKAYLA Administration - Exam Eye: PERRL Heart: RRR, no murmur, no gallops, no rubs, normal peripheral pulses Respiratory: CTAB, no wheezes, no rales, no ronchi, normal chest expansion Gastrointestinal: soft, non-tender, non-distended, no palpable masses, no hepatomegaly, no splenomegaly Extremities: no cyanosis, no edema Hosp A/P (1) Alcohol abuse Code(s): F10.10 - ALCOHOL ABUSE, UNCOMPLICATED Status: Acute (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 He may benefit from home health. We discussed residential placement , as I am concerned with the frequent falls. He says he has thought about this too, but does not want to loose his autonomy. * HTN- blood pressure has been consistently elevated- will add Amlodipine * Likely home this afternoon.
[2019-06-15] MEDS ORDERED: Amlodipine 5 MG TAB PO SCH ×2 (10:06→10:30)
[2019-06-15] MEDS ORDERED: Prevnar 13-Val Conj/PF 0.5 ML SYRINGE IM ONE (12:00)
[2019-06-15] MEDS: Multivitamins, Adult 10 ML, Folic Acid 1 MG, Thiamine HCl 100 MG in Dextrose 5 %-0.45 %... IV SCH (13:08)
[2019-06-15 13:58] VITALS: BMI 20.5
--- NOTE | 2019-06-15 18:03 | PDOC.EVN ---
Event Note - Event Note Event Note: Patient's sister will come to pick him up tomorrow for discharge if he remains stable
[2019-06-15] MEDS ORDERED: BEER 1 CAN PO SCH (18:45)
[2019-06-15] MEDS ORDERED: Nicotine 14 MG PATCH TD SCH (21:00)
[2019-06-16] MEDS: Multivit, Therapeutic 1 TAB PO SCH (08:54)
[2019-06-16] MEDS: Folic Acid 1 MG TAB PO SCH (08:54)
[2019-06-16] MEDS: Thiamine 100 MG TAB PO SCH (08:54)
[2019-06-16] MEDS: Lorazepam 1 MG TAB PO SCH (08:56)
[2019-06-16] MEDS ORDERED: Amlodipine 5 MG TAB PO SCH (09:00)
[2019-06-16] MEDS: BEER 1 CAN PO SCH ×2 (09:19→12:25)
[2019-06-16 12:09] VITALS: TEMP 97.4
[2019-06-16] MEDS: Multivitamins, Adult 10 ML, Folic Acid 1 MG, Thiamine HCl 100 MG in Dextrose 5 %-0.45 %... IV SCH (12:36)
--- NOTE | 2019-06-16 13:32 | PDOC.HOSPP ---
- Subjective Encounter Date: 06/16/19 Encounter Time: 11:00 Subjective: Patient seen and examined. No new complaints. No overnight events - Objective Vital Signs & Weight: Vital Signs (12 hours) Temp Pulse Resp BP Pulse Ox 06/16/19 11:20 97.4 F L 84 18 162/92 H 97 06/16/19 08:55 88 06/16/19 07:50 97.5 F L 88 18 161/96 H 97 06/16/19 04:37 97.9 F 91 18 154/96 H 98 Weight Admit Weight 140 lb Weight 155 lb 9.6 oz I&O: 06/15/19 06/16/19 06/17/19 06:59 06:59 06:59 Intake Total 3191 Output Total 400 350 Balance -400 2841 Result Diagrams: 06/15/19 04:17 06/15/19 04:17 Radiology Reviewed by me: Yes EKG Reviewed by me: Yes Hospitalist ROS - Review of Systems Respiratory: denies: cough, dry, shortness of breath, hemoptysis, SOB with excertion, pleuritic pain, sputum, wheezing, other Cardiovascular: denies: chest pain, palpitations, orthopnea, paroxysmal noc. dyspnea, edema, light headedness, other Gastrointestinal: denies: nausea, vomiting, abdominal pain, diarrhea, constipation, melena, hematochezia, other Genitourinary: denies: dysuria, frequency, incontinence, hematuria, retention, other - Medication Medications: Active Medications Generic Name Dose Route Start Last Admin Trade Name Freq PRN Reason Stop Dose Admin Amlodipine Besylate 5 mg 06/16/19 09:00 06/16/19 08:55 Norvasc PO 5 mg DAILY MIKAYLA Administration Beer 1 each 06/16/19 08:00 06/16/19 12:25 Beer PO 1 each TID-WM MIKAYLA Administration Folic Acid 1 mg 06/15/19 09:00 06/16/19 08:54 Folvite PO 1 mg DAILY MIKAYAL Administration Multivitamins 10 ml/ Folic 1,011.2 mls @ 75 mls/hr 06/14/19 09:30 06/16/19 12 :36 Acid 1 mg/ Thiamine HCl 100 mg IV Not Given / Dextrose/Sodium Chloride Q24HR MIKAYLA Lorazepam 1 mg 06/14/19 09:22 06/15/19 16:36 Ativan SLOW IVP 1 mg Q4H PRN Administration Anxiety/Agitation Multivitamins 1 tab 06/15/19 09:00 06/16/19 08:54 Theragran PO 1 tab DAILY MIKAYLA Administration Nicotine 14 mg 06/15/19 21:00 06/15/19 18:48 Nicoderm Patch TD 14 mg Q24HR MIKAYLA Administration Sodium Chloride 10 ml 06/14/19 21:00 06/16/19 12:36 Flush - Normal Saline IVF Not Given Q12HR MIKAYLA Thiamine HCl 100 mg 06/15/19 09:00 06/16/19 08:54 Thiamine PO 100 mg DAILY MIKAYLA Administration - Exam General Appearance: NAD, awake alert Eye: PERRL, anicteric sclera ENT: normocephalic atraumatic, no oropharyngeal lesions Neck: supple, symmetric, no JVD Heart: RRR, no murmur, no gallops Respiratory: CTAB, no wheezes, no rales Gastrointestinal: soft, non-tender, non-distended, normal bowel sounds Extremities: no cyanosis, no clubbing, no edema Skin: normal turgor, no lesions Neurological: no focal deficits Musculoskeletal: normal tone, normal strength Psychiatric: normal affect, normal behavior Hosp A/P (1) Hypertension Code(s): I10 - ESSENTIAL (PRIMARY) HYPERTENSION Status: Chronic (2) Alcohol abuse Code(s): F10.10 - ALCOHOL ABUSE, UNCOMPLICATED Status: Chronic (3) Alcoholic encephalopathy Code(s): G31.2 - DEGENERATION OF NERVOUS SYSTEM DUE TO ALCOHOL; F10.20 - ALCOHOL DEPENDENCE, UNCOMPLICATED Status: Resolved - Plan old records reviewed/req medication reviewed and continue to provide symptomatic care stable for dc counselled to avoid alcohol abuse see discharge fior
--- NOTE | 2019-06-16 14:06 | DIS ---
DATE OF ADMISSION: 06/14/2019 DATE OF DISCHARGE: 06/16/2019 PRIMARY CARE PHYSICIAN: [facility] Call admission. DISCHARGE DISPOSITION: Home. PRIMARY DISCHARGE DIAGNOSES: 1. Acute alcohol intoxication. 2. Mechanical fall and mild scalp laceration. SECONDARY DISCHARGE DIAGNOSIS: Alcohol abuse. PRIMARY PROCEDURE/OPERATION: None. RADIOLOGICAL INVESTIGATION: CT of brain, negative. CT of cervical spine, negative for any fracture or dislocation. SIGNIFICANT LABORATORY DATA: WBC 4.4, hemoglobin 12.9, platelet 131. Sodium 137, creatinine 0.78. Cardiac enzyme negative. Electrolytes normal. Urinalysis normal. Alcohol level 338 on admission. DISCHARGE MEDICATIONS: 1. Folic acid 1 mg p.o. daily. 2. Norvasc 5 mg p.o. daily. 3. Multivitamin one tablet daily. 4. Thiamine 100 mg p.o. daily. 5. Polymyxin B and trimethoprim ophthalmic drops, right eye every 3 hourly. CONTRAINDICATION: None. CODE STATUS: Full code. INPATIENT OUTREACH SPECIALIST: None. ALLERGIES: NO KNOWN DRUG ALLERGIES. DISCHARGE PLAN: Posthospital, the patient will follow up with primary care physician. HOSPITAL COURSE: A 68-year-old male who has alcoholism and he was admitted for alcohol intoxication and he had mechanical fall and mild scalp laceration happened. CT of the brain was negative. Cervical spine was negative. The patient was treated with IV fluid, banana bag and he was also given beer to prevent alcohol withdrawal. The patient is stable for discharge. We have provided counseling to avoid alcohol abuse. This patient is continuously high risk for recurrent admission from alcoholism related problem. Job ID: [id number]
[2019-06-16 15:09] VITALS: BP 145/93
== END 2019-06-16 15:05 | disposition home or self-care (01) ==
LOC: ERS 23:14 → ERHOLD 06-14 01:19 → 2NO 06-14 18:19
PROVIDERS: ADMIT Family Medicine; ATTEND Internal Medicine
DX: G31.2 Degeneration of nervous system due to alcohol (principal); F10.229 Alcohol dependence with intoxication, unspecified; S01.01XA Laceration without foreign body of scalp, initial encounter; H10.9 Unspecified conjunctivitis; F17.210 Nicotine dependence, cigarettes, uncomplicated; I70.90 Unspecified atherosclerosis; I10 Essential (primary) hypertension; W19.XXXA Unspecified fall, initial encounter; Y90.8 Blood alcohol level of 240 mg/100 ml or more
CPT/HCPCS: 12002; 70450; 72125; 80048; 80053; 80307; 81003; 82550; 82553; 83735; 84100; 84484 ×3; 85025 ×2; 93005; 96365; 96366; 96375; 97116 ×2; 97139 ×4; 97530; 97535; 99285; 99406; G0378 ×4; 36415; J2060; J3411; J7042